=== PATIENT | male | born 1980 | race Caucasian/White ===

== ENCOUNTER 2018-12-19 10:14 | Emergency (ER) | payer SELFPAY ==
[~2018-12-19] VITALS: Ht 172.7 cm; Wt 70.3 kg
[~2018-12-19 10:14] MED LIST: AMOXICILLIN250 MG PO; CILOXAN 5 ML5 M1; FLAGYL500 MG PO; KEFLEX500 MG PO; MEDROL DOSEPAK4 MG PO; MOTRIN800 MG PO; NKHM; PROVENTIL0.09 MG/AC IH; VICODIN 5/500 505 MG PO; ZITHROMAX Z PA250 MG PO; ZITHROMAX250 MG PO
== END 2018-12-19 11:06 | disposition home or self-care (01) ==
LOC: ED 10:14
DX: S01.81XA Laceration without foreign body of other part of head, initial encounter (principal); W22.8XXA Striking against or struck by other objects, initial encounter; Y93.89 Activity, other specified; Y92.89 Other specified places as the place of occurrence of the external cause; Y99.9 Unspecified external cause status

== ENCOUNTER 2019-09-19 13:30 | Emergency (ER) | payer SELFPAY ==
[~2019-09-19] VITALS: Ht 172.7 cm; Wt 70.3 kg
== END 2019-09-19 14:13 | disposition home or self-care (01) ==
LOC: ED 13:30
DX: S05.02XA Injury of conjunctiva and corneal abrasion without foreign body, left eye, initial encounter (principal); J45.909 Unspecified asthma, uncomplicated; X58.XXXA Exposure to other specified factors, initial encounter; Y93.89 Activity, other specified; Y92.89 Other specified places as the place of occurrence of the external cause; Y99.8 Other external cause status

== ENCOUNTER 2019-10-03 13:55 | Emergency (ER) | payer SELFPAY ==
[~2019-10-03] VITALS: Ht 172.7 cm; Wt 68.0 kg
[2019-10-03 18:21] LABS: BACTERIA 2+; BILIRUBIN 1+ (NEGATIVE); BLOOD 1+ (NEGATIVE); CLARITY CLOUDY (CLEAR); COLOR YELLOW (YELLOW); GLUCOSE NEGATIVE (NEGATIVE); KETONE NEGATIVE (NEGATIVE); LEUKO ESTERASE 2+ (NEGATIVE); NITRITE NEGATIVE (NEGATIVE); RBC 0-2 rbc/hpf (0-2); UROBILINOGEN 0.2 E.U./dl (0.2-1.0); WBC TNTC wbc/hpf (0-5)
== END 2019-10-03 14:50 | disposition home or self-care (01) ==
LOC: ED 13:55
PROVIDERS: Emergency Medicine
DX: B34.9 Viral infection, unspecified (principal); J45.909 Unspecified asthma, uncomplicated; Z20.828 Contact with and (suspected) exposure to other viral communicable diseases

== ENCOUNTER 2019-10-06 10:07 | Emergency (ER) | payer SELFPAY ==
[~2019-10-06] VITALS: Ht 172.7 cm; Wt 68.0 kg
== END 2019-10-06 10:34 | disposition home or self-care (01) ==
LOC: ED 10:07
DX: A54.9 Gonococcal infection, unspecified (principal)